=== PATIENT | female | born 1970 | race Caucasian/White ===

== ENCOUNTER → 2023-11-07 07:18 | Outpatient (REF) | payer BC, SELFPAY ==
[2023-11-07 08:04] LABS: % Basophils 0.2 % (0-2); % Eosinophils 1.7 % (0-6); % Immature Granulocytes 0.2 % (0-0.5); % Lymphocytes 22.4 % (20.5-51.1); % Monocytes 6.7 % (1.7-9.3); % Neutrophils 68.8 % (42.2-75.2); Absolute Eosinophils 0.1 10^3/uL (0-0.7); Absolute Lymphocytes 1.1 10^3/uL (1.2-3.4); Absolute Monocytes 0.3 10^3/uL (0.1-0.6); Absolute Neutrophils 3.3 10^3/uL (1.4-6.5); Hemoglobin 14.1 g/dL (12.0-16.0); Mean Corp Hgb Conc. 34.4 g/dL (33.0-37.0); Mean Corpuscular Hgb 29.8 pg (27.0-31.0); Mean Corpuscular Volume 86.7 fL (81.0-99.0); Mean Platelet Volume 11.7 fL (7.4-10.4); Nucleated Red Blood Cells % 0 %; Platelet Count 196 10^3/uL (130-400); Red Blood Cell Count 4.73 10^6/uL (4.20-5.40); Red Cell Dist. Width 12.4 % (11.5-14.5); White Blood Cell Count 4.8 10^3/uL (4.8-10.8)
[2023-11-07 09:00] LABS: ALT (SGPT) 18 U/L (0-35); AST (SGOT) 23 U/L (14-36); Albumin 4.7 g/dl (3.5-5.0); Alkaline Phosphatase 66 U/L (38-126); Blood Urea Nitrogen 16 mg/dl (7-17); Calcium 9.8 mg/dl (8.4-10.2); Carbon Dioxide 25 mmol/L (22-30); Chloride 106 mmol/L (98-107); Glucose 101 mg/dl (70-99); HDL Cholesterol 64 mg/dl; LDL Cholesterol, Calculated 137 mg/dl; Potassium 4.9 mmol/L (3.5-5.1); Sodium 139 mmol/L (135-145); Total Bilirubin 0.6 mg/dl (0.2-1.3); Total Cholesterol 221 mg/dl (50-199); Total Protein 7.4 g/dl (6.3-8.2); Triglyceride 102 mg/dl (10-149); Very Low Density Lipoprotein 20 mg/dl (0-30); eGFR > 60.00
[2023-11-07 09:08] LABS: Glycohemoglobin (HgbA1c) 5.4 % (4.0-5.6)
[2023-11-07 09:25] LABS: TSH Reflex To Free T4 1.79 uIU/ml (0.47-4.68)
[2023-11-07 09:29] LABS: Ferritin 17.4 ng/ml (11.1-264.0)
[2023-11-07 09:42] LABS: Hepatitis B Surface Antibody Positive
[2023-11-07 09:44] LABS: Vitamin B12 206 pg/ml (239-931)
[2023-11-09 04:15] LABS: Vitamin D 1,25 Dihydroxy 44.3 pg/mL (19.9-79.3)
== END ==
LOC: REG 07:18
PROVIDERS: ATTENDING PHYSICIAN Nurse Practitioner Family
DX: Z13.29 Encounter for screening for other suspected endocrine disorder (principal); Z13.1 Encounter for screening for diabetes mellitus; Z13.0 Encounter for screening for diseases of the blood and blood-forming organs and certain disorders involving the immune mechanism; Z13.21 Encounter for screening for nutritional disorder; Z13.220 Encounter for screening for lipoid disorders
CPT/HCPCS: 36415; 80053; 80061; 82607; 82652; 82728; 83036; 84443; 85025; 86706

== ENCOUNTER → 2024-02-11 07:27 | Outpatient (REF) | payer BC, SELFPAY ==
[2024-02-13 17:13] LABS: Intrinsic Factor Blocking Ab Negative (Negative)
== END ==
LOC: REG 07:27
PROVIDERS: ATTENDING PHYSICIAN Nurse Practitioner Family
DX: R79.89 Other specified abnormal findings of blood chemistry (principal)
CPT/HCPCS: 36415; 83516; 86340

== ENCOUNTER → 2024-08-19 16:11 | Outpatient (REF) | payer BC, SELFPAY ==
[2024-08-29 04:14] LABS: HPV, High Risk Detected; HPV, High Risk Source Cervix
== END ==
LOC: CPAP 16:11
PROVIDERS: ATTENDING PHYSICIAN Obstetrics & Gynecology
DX: Z01.419 Encounter for gynecological examination (general) (routine) without abnormal findings (principal); Z11.51 Encounter for screening for human papillomavirus (HPV)
CPT/HCPCS: 87624

== ENCOUNTER → 2024-10-21 10:14 | Outpatient (REF) | payer BC, SELFPAY | LOC: DHSLP 10:14 | PROVIDERS: ATTENDING PHYSICIAN Internal Medicine; FAMILY PHYSICIAN Nurse Practitioner Family | DX: G47.30 Sleep apnea, unspecified (principal); R06.83 Snoring | CPT/HCPCS: 95800 ==

== ENCOUNTER → 2024-12-03 09:06 | Outpatient (REF) | payer BC, SELFPAY ==
[2024-12-03 10:45] LABS: Hematocrit 43.2 % (37.0-47.0); Hemoglobin 14.3 g/dL (12.0-16.0); Mean Corp Hgb Conc. 33.1 g/dL (33.0-37.0); Mean Corpuscular Volume 87.6 fL (81.0-99.0); Platelet Count 172 10^3/uL (130-400); Red Cell Dist. Width 12.3 % (11.5-14.5)
[2024-12-03 11:10] LABS: Glycohemoglobin (HgbA1c) 5.5 % (4.0-5.6)
[2024-12-03 11:18] LABS: ALT (SGPT) 28 U/L (0-35); AST (SGOT) 26 U/L (14-36); Albumin 4.6 g/dl (3.5-5.0); Alkaline Phosphatase 68 U/L (38-126); Blood Urea Nitrogen 13 mg/dl (7-17); Calcium 9.8 mg/dl (8.4-10.2); Carbon Dioxide 29 mmol/L (22-30); Chloride 107 mmol/L (98-107); Glucose 97 mg/dl (70-99); HDL Cholesterol 70 mg/dl; LDL Cholesterol, Calculated 134 mg/dl; Potassium 4.7 mmol/L (3.5-5.1); Sodium 141 mmol/L (135-145); Total Protein 7.3 g/dl (6.3-8.2); Very Low Density Lipoprotein 25 mg/dl (0-30); eGFR > 60.00
[2024-12-03 11:49] LABS: Ferritin 21.2 ng/ml (11.1-264.0)
[2024-12-03 12:04] LABS: Vitamin B12 379 pg/ml (239-931)
== END ==
LOC: REG 09:06
PROVIDERS: ATTENDING PHYSICIAN Nurse Practitioner Family
DX: R79.89 Other specified abnormal findings of blood chemistry (principal); E61.1 Iron deficiency; E78.2 Mixed hyperlipidemia; Z13.29 Encounter for screening for other suspected endocrine disorder; Z13.1 Encounter for screening for diabetes mellitus
CPT/HCPCS: 36415; 80053; 80061; 82607; 82652; 82728; 83036; 84443; 85027

== ENCOUNTER 2024-12-04 14:56 | Emergency (ER) | payer BC, SELFPAY ==
[2024-12-04 15:01] VITALS: BP 125/81
--- NOTE | 2024-12-04 16:30 | ED.GENMED ---
History of Present Illness
General
Chief Complaint: Head Injury
Source: patient
Exam Limitations: none
Time Seen by Provider: 12/04/24 16:27
Nursing documentation reviewed up to this point in time: agreed with
History of Present Illness
History of Present Illness:
53-year-old female with past medical history o no past medical history presents to the ER today with concerns of persistent headache following a fall 1 week ago. Patient reports slipping and rolling her left ankle, leading to falling face first
onto a hard surface in her home. She reports that she rolls her ankle from time to time and that causes her to fall but she is usually able to catch herself. Patient reports that she not injure any part of her face and she not endure any
lacerations or injuries to the face. She reports that she landed on her right side, impacting her right hand and she states that she has had bruising and swelling on her right hand and some bruising on her knee as well. The patient has been able
to ambulate without any difficulty since the fall and is able to bear weight comfortably on the affected knee. She describes that since then she has had daily headaches that typically begin 2 to 3 hours after waking up and worsen throughout the
day. She takes Tylenol which helps take the edge off most recent dose was 7 AM this morning. She has no associated loss of consciousness, no blurry vision no visual loss, no weakness one-sided body. No paresthesias. She had nausea at the time of
the fall but there is no loss of consciousness noted. She denies chest pain or shortness of breath. She notes occasional auditory sensitivity but denies any photophobia.
Past History
Past History
ED Past Medical History: None
Review of Systems
Review of Systems
All Other Systems: ROS reviewed and negative except as documented in HPI and ROS
Phy Exam
Physical Exam
Physical Exam:
General: Patient is well appearing and in no acute distress; non-toxic
Skin: Warm and dry, no rashes or lesions
Head: Normocephalic, atraumatic
Eyes: Sclera non-icteric. EOMs intact.
Cardiac: Regular rate and rhythm, no murmurs
Peripheral Vascular: No lower extreme swelling or edema, no right-sided suprapatellar swelling noted
Pulm: Normal respiratory effort
Abdomen: No abdominal tenderness to palpation
Musculoskeletal: Swelling and bruising noted to the right fifth metacarpal with minimal tenderness to palpation, full range of motion of the right wrist, 5 out of 5 strength in bilateral upper extremities. Full range of motion of bilateral lower
extremities, no pain with right knee flexion extension.
Neuro: CN II-XII intact, no focal neurologic deficits. 5 out of 5 strength, normal heel nose, finger to blum testing.
Psychiatric: Appropriate mood and affect.
Course
Orders/Labs/Results
Orders:
Orders
12/04/24 16:40
CT Head W/o Iv Contrast Urgent
Comment:
Reason For Exam: daily headache following trauma
CR Hand - Right Min 3 Views Urgent
Reason For Exam: right lateral hand pain
CR Wrist - Right Min 3 Views Urgent
Comment:
Reason For Exam: wrist pain following fall
Vital Signs
Initial and Last Documented VS:
Initial Vital Signs
Temp Pulse Resp BP Pulse Ox
98.4 F 68 16 125/81 99
12/04/24 15:01 12/04/24 15:01 12/04/24 15:12/04/24 15:01 12/04/24 15:01
Last Documented Vital Signs
Temp Pulse Resp BP Pulse Ox
98.4 F 68 16 125/81 99
12/04/24 15:01 12/04/24 15:01 12/04/24 15:01 12/04/24 15:01 12/04/24 16:33
MDM/Problems Addressed
Differential Diagnosis Includes:
Differentials include concussion, intracranial hemorrhage, soft tissue contusion, metacarpal fracture, cervical strain, posttraumatic headache, tendinitis
MDM/Problems Addressed:
53-year-old female with no past medical history presents emergency department today with concerns of persistent daily headaches following head trauma. She reports that she fell on her home when she lost her footing onto her right side. She not
lose consciousness. Physical exam she is well-appearing in no acute distress. She has a nonfocal normal neurologic exam. She has some swelling and bruising noted to the right fifth metacarpal. She went for CAT scan which shows no acute
intracranial normality. She went for hand x-ray which shows no osseous abnormality and there is no osseous abnormality noted on the wrist x-ray. Suspected postconcussive syndrome. Patient requested any medication for headache at this time. Did
offer IV medications. Patient declines preferring to recover at home. Discussed follow-up with PCP and continuing to monitor symptoms closely. Patient stressed understanding. Patient stable for discharge.
Chronic conditions affecting care:
N/A
*Pulse Oximetry
SaO2: 99
Oxygen Mode of Delivery: Room air
Patient hypoxic: no
*Critical Care Note
Total Time (30-74mins, 75-104mins- exclusive of procedures): Not Applicable
Data Reviewed
Review of Other/Old Records Reveals: Records (Reviewed ER physician documentation from 10/13/2021 patient seen for contusion of hip) and Discharge Summary (No discharge summaries in [facility] to review)
Source: patient
ED Attending Note
-
Portions of this chart may have been created with voice recognition software.� Occasional wrong word or��sound alike� substitutions may have occurred due to the inherent limitations of voice recognition software.
Discharge Plan
Departure
Patient Disposition: Home (Routine Discharge)
Date of Disposition: 12/04/24
Time of Disposition: 18:38
Patient with high blood pressure during this ER visit?: Yes
Condition: Good
Discharge Problem:
Post concussion syndrome
Instructions: Concussion, Adult (DC), BLOOD PRESSURE
Prescriptions:
No Action
lidocaine 5 % adhesive patch,medicated
1 patch topical DAILY Qty: 15 0RF
Referrals:
Montserrat Giordano CRNP [Family Provider, Family Practice]
Activity Restrictions/Additional Instructions:
Please continue to monitor your symptoms and follow-up with your primary care provider. Your x-ray showed no evidence of acute fracture or dislocation. Your head CT shows no evidence of acute intracranial abnormality. You can take Tylenol and
Motrin as needed for your symptoms.
PLEASE RETURN TO THE ER SHOULD YOU DEVELOP VISUAL LOSS, VISUAL CHANGES, LOSS OF CONSCIOUSNESS, HEADACHE, CHEST PAIN, NECK PAIN, OR ANY OTHER SIGNS OR SYMPTOMS WORRISOME TO YOU.
Interventions
Interventions:
*Risk Screen - Suicide Last Done: 12/04/24 15:03
*General Assessment Last Done: 12/04/24 15:33
*Neglect/Abuse Screening Last Done: 12/04/24 15:03
*ED- Fall Risk Assessment Last Done: 12/04/24 15:33
*Nursing Disposition Last Done: 12/04/24 18:48
ED- Neurological Assessment Last Done: 12/04/24 15:33
Discharge Date and Time
Discharge Date/Time: 12/04/24 18:49
Print Language: LITHUANIAN
== END 2024-12-04 18:49 | disposition home or self-care (01) ==
LOC: EMR 14:56
PROVIDERS: EMERGENCY PHYSICIAN Emergency Medicine; FAMILY PHYSICIAN Nurse Practitioner Family
DX: G44.309 Post-traumatic headache, unspecified, not intractable (principal); F07.81 Postconcussional syndrome; R03.0 Elevated blood-pressure reading, without diagnosis of hypertension; W01.198A Fall on same level from slipping, tripping and stumbling with subsequent striking against other object, initial encounter; X50.1XXA Overexertion from prolonged static or awkward postures, initial encounter; Y93.01 Activity, walking, marching and hiking; Y92.009 Unspecified place in unspecified non-institutional (private) residence as the place of occurrence of the external cause
CPT/HCPCS: 99284; 70450; 73110; 73130

== ENCOUNTER 2025-03-26 02:12 | Emergency (ER) | payer BC, SELFPAY ==
[2025-03-26 02:23] VITALS: BP 120/60
--- NOTE | 2025-03-26 07:25 | ED.GENMED ---
History of Present Illness
General
Chief Complaint: Back Pain
Source: patient
Exam Limitations: none
Time Seen by Provider: 03/26/25 06:55
Nursing documentation reviewed up to this point in time: agreed with
History of Present Illness
History of Present Illness:
Patient is a healthy 54-year-old female who presents to the emergency department with left upper back pain. Patient states that she started with left-sided back spasms around 4 PM yesterday. Pain is localized just below her left scapula. She
denies any radiation into her lower back or chest. No associated chest pain, shortness of breath, cough. No headache or neck pain. Pain is worse with certain movements and somewhat relieved with pressure applied to area of pain.
She states that she was on her feet all day yesterday prior to onset of symptoms as they had guests over for the holiday. She has been struggling with similar back spasms over the course of the past year exacerbated with similar activities.
Symptoms are typically resolved with topical [place] and Tylenol. She did not receive relief with Tylenol last night prompting visit to the emergency department.
She denies any recent falls or trauma.
Past History
Past History
ED Past Medical History: None
Review of Systems
Review of Systems
Allergies reviewed?: Yes
All Other Systems: ROS reviewed and negative except as documented in HPI and ROS
Phy Exam
Physical Exam
Physical Exam:
Vitals: Patient's vital signs are stable. Afebrile
General: Patient is uncomfortable appearing due to pain.
Skin: Warm and dry, no rashes or lesions
Head: Normocephalic, atraumatic
Throat: Protecting airway
Neck: Normal ROM, no cervical spine tenderness
Cardiac: Regular rate
Pulm: No apparent respiratory distress. Lungs clear bilaterally
Abdomen: Nondistended
Back: Reproducible tenderness just below left scapula without overlying rash or erythema. No midline spinal tenderness. No CVA tenderness.
Extremities: No evidence of cyanosis or edema. Strength 5/5 in bilateral upper and lower extremities. Sensation intact
Neuro: Grossly intact
Psychiatric: Normal affect.
Course
Orders/Labs/Results
Orders:
Orders
03/26/25 07:24
Acetaminophen [Tylenol] 1,000 mg PO NOW STA
Ketorolac [Toradol] 15 mg IM NOW STA
Lidocaine [Lidocaine 4% Patch] 1 patch TOPICAL NOW STA
Apply Lidocaine patch(s) to:: Left upper back
03/26/25 07:26
Electrocardiogram (*1) Urgent
Reason for Study: Other
Other Reason for Exam: Left back pain
EKG- Treatment ONCE
03/26/25 08:15
diazePAM [Valium Injection] 2 mg IM NOW STA
Vital Signs
Initial and Last Documented VS:
Initial Vital Signs
Temp Pulse Resp BP Pulse Ox
97.6 F 74 14 120/60 99
03/26/25 02:23 03/26/25 02:23 03/26/25 02:23 03/26/25 02:23 03/26/25 02:23
Last Documented Vital Signs
Temp Pulse Resp BP Pulse Ox
97.6 F 74 14 122/61 100
03/26/25 02:23 03/26/25 02:23 03/26/25 02:23 03/26/25 08:28 03/26/25 08:30
MDM/Problems Addressed
Differential Diagnosis Includes:
Not limited to: Muscle strain, muscle spasm, contusion, zoster
MDM/Problems Addressed:
54 year-old female with one day of left upper back discomfort described as a spasm. Positional in nature without any radiation to chest or associated fever, cough, shortness of breath or chest pain. No PE risk factors. Patient has history of similar
muscle spasms in same region of back over the past year.
Vital signs and physical exam as above.
She is uncomfortable appearing due to pain, however in no respiratory distress. Lungs are clear. Focal area of tenderness in left scapular region. No rash. No lower extremity edema.
Impression is likely musculoskeletal back pain/ back spasm. Will treat symptomatically in ED. Cardiac process less likely, however, will screen with EKG.
Update: EKG reveals normal sinus rhythm without evidence of acute ischemia.
Patient has had near complete improvement in symptoms following treatment in ED, seemed to have significant response to IM valium.
Do not suspect acute pulmonary process or infectious etiology. No rash or evidence of vascular emergency.
At this point � symptoms have improved and patient feels comfortable with discharge home with supportive care. Strict return precautions discussed including any infectious symptoms, worsening or other acute changes. Patient comfortable with plan.
Chronic conditions affecting care:
N/A
Acute Exacerbation and/or Progression of Chronic Illness:
N/A
*Pulse Oximetry
SaO2: 99
Oxygen Mode of Delivery: Room air
Patient hypoxic: no
*EKG
Interpreted by ED Provider?: Yes
EKG Intrepretation Date: 03/26/25
Interpretation: normal
Comparison EKG: no comparison EKG present
Heart Rate: 55
Rate: bradycardiac
Rhythm: sinus
[place]: normal axis
Interval: normal QT interval
QRS Pattern: normal QRS
Ischemia: no ischemia
*Unhairing Inspector Interpretation
Rate: Unhairing Inspector- N/A
*Critical Care Note
Total Time (30-74mins, 75-104mins- exclusive of procedures): Not Applicable
ED Attending Note
-
Portions of this chart may have been created with voice recognition software.� Occasional wrong word or��sound alike� substitutions may have occurred due to the inherent limitations of voice recognition software.
Discharge Plan
Departure
Patient Disposition: Home (Routine Discharge)
Date of Disposition: 03/26/25
Time of Disposition: 09:18
Patient with high blood pressure during this ER visit?: No
Condition: Good
Discharge Problem:
Muscle spasm of back
Instructions: Upper Back Pain (DC), Muscle spasm - ED (DC)
Prescriptions:
New
lidocaine 5 % adhesive patch,medicated
1 patch topical DAILY PRN (Reason: Pain) Qty: 15 0RF
diazepam [Valium] 5 mg tablet
5 mg PO TID PRN (Reason: muscle spasm) Qty: 8 0RF
No Action
lidocaine 5 % adhesive patch,medicated
1 patch topical DAILY Qty: 15 0RF
Referrals:
Montserrat iGordano CRNP [Family Provider, Family Practice] - Follow up in 5-7 days
Stand Alone Forms: Return to Work
Activity Restrictions/Additional Instructions:
RETURN TO THE EMERGENCY DEPARTMENT WITH ANY INTRACTABLE PAIN, CHEST PAIN OR SHORTNESS OF BREATH, FEVER OR COUGH, WORSENING IN CURRENT SYMPTOMS, OR ANY OTHER CONCERNS
- As discussed, I suspect that you likely have a muscle spasm of your upper back. Please continue to take Motrin 600 mg Q 6-8 hours as needed for pain. You can take Tylenol, as well. A prescription for lidocaine patches have been sent to your
pharmacy. I also sent a prescription for Valium which you can take for intractable pain/muscle spasm nightly up to every 8 hours as needed. This will cause drowsiness and you should not take prior to driving or working.
- Follow-up with your primary care provider in 1 week for further evaluation/management to ensure that your symptoms are improving
Monitor your symptoms closely and return to the department with any acute worsening/new symptoms or any other concerns
Interventions
Interventions:
*General Assessment Last Done: 03/26/25 07:14
*Neglect/Abuse Screening Last Done: 03/26/25 07:14
*ED COVID-19 Vaccine History Last Done: 03/26/25 07:14
*ED Influenza Vaccine History Last Done: 03/26/25 07:14
[facility] Risk Assessment Tool Last Done: 03/26/25 07:14
*Risk Screen - Suicide (C-SSRS) Last Done: 03/26/25 02:28
*Nursing Disposition Last Done: 03/26/25 09:31
ED-Musculoskeletal Assessment Last Done: 03/26/25 08:34
Discharge Date and Time
Discharge Date/Time: 03/26/25 09:32
Print Language: DANISH
[2025-03-26] MEDS: LIDOCAINE 4% PATCH 1 PATCH TOPICAL (07:44)
[2025-03-26] MEDS: TORADOL 15 MG IM (07:44)
[2025-03-26] MEDS: TYLENOL 1000 MG PO (07:44)
[2025-03-26 08:28] VITALS: BP 122/61
[2025-03-26] MEDS: VALIUM INJECTION 2 MG IM (08:29)
== END 2025-03-26 09:32 | disposition home or self-care (01) ==
LOC: EMR 02:12
PROVIDERS: EMERGENCY PHYSICIAN Emergency Medicine; FAMILY PHYSICIAN Nurse Practitioner Family
DX: M62.830 Muscle spasm of back (principal)
CPT/HCPCS: 96372; 99284; 93005